=== PATIENT | male | born 1980 | race Hispanic/Latino ===

== ENCOUNTER 2017-03-31 19:10 | Emergency (ER) | payer OTHER ==
[2017-03-31 19:56] VITALS: BMI 27.2
[2017-03-31 20:00] VITALS: TEMP 98.6
[2017-03-31] MEDS ORDERED: Erythromycin 0.5% Ophth Oint 1 APPLIC/3.5 G OS ONE (20:21)
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
[2017-03-31 20:39] VITALS: O2SAT 98
[2017-03-31 21:00] VITALS: BP 126/85; PULSE 87; RESP 16
== END 2017-03-31 20:59 | disposition home or self-care (01) ==
LOC: ED 19:10
DX: S05.02XA Injury of conjunctiva and corneal abrasion without foreign body, left eye, initial encounter (principal); W50.0XXA Accidental hit or strike by another person, initial encounter; Y92.89 Other specified places as the place of occurrence of the external cause